=== PATIENT | female | born 1995 | race African-American/Black ===

== ENCOUNTER 2024-10-11 06:47 | Emergency (ER) | payer SELFPAY ==
[~2024-10-11] VITALS: Ht 154.9 cm; Wt 74.8 kg
[2024-10-11 06:57] VITALS: PULSE 86; RESP 18; TEMP 98.8; O2SAT 100
[2024-10-11 07:55] LABS: EPITHELIAL CELLS,URINE FEW /LPF; LEUKOCYTE ESTERASE ,URINE NEGATIVE (NEGATIVE); PREGNANCY TEST, URINE NEGATIVE (NEGATIVE); PROTEIN,URINE DIPSTICK NEGATIVE (NEGATIVE); URINE UROBILINOGEN 0.2 mg/dL (0.2 - 1)
[2024-10-11] MEDS ORDERED: CIPRO500 MG PO (08:05)
[2024-10-11] MEDS ORDERED: DICYCLOMINE HCL20 MG PO (08:05)
[2024-10-11] MEDS ORDERED: ONDANSETRON ODT4 MG PO (08:05)
[2024-10-11] MEDS: DICYCLOMINE HCL 20 MG TAB PO ONE (08:22)
[2024-10-11] MEDS: ONDANSETRON HCL 4 MG ORAL DISINTEGRATING TAB PO ONE (08:22)
== END 2024-10-11 08:29 | disposition home or self-care (01) ==
LOC: ER 07:03
DX: R11.2 Nausea with vomiting, unspecified (principal); N39.0 Urinary tract infection, site not specified; R10.30 Lower abdominal pain, unspecified; R19.7 Diarrhea, unspecified
CPT/HCPCS: 81001; 81025; 99283; Q0162